=== PATIENT | female | born 1990 | race Caucasian/White ===

== ENCOUNTER → 2016-09-20 | Emergency (ER) | payer MEDICAID, OTHER ==
[~2016-09-20] MED LIST: TRICTAB PO
[2016-09-20 11:48] VITALS: BP 109/77; PULSE 70
--- NOTE | 2016-09-20 12:21 | PD ---
HPI Chief Complaint lower abdominal pain Date Seen: Sep 20, 2016 Time Seen: 12:02 (Aleksey Ferrer MD R1) Travel History International Travel<30 Days: No Contact w/Intl Traveler<30Days: No (Aleksey Ferrer MD R1) History of Present Illness HPI 26 y/o female at 24 weeks presents to ED with lower abdominal pain. States it started about 3 days ago. Radiating to pelvis and sometimes to back. Constant, getting worse. Describes as achy, shooting pain at times. No other pain. Denies any dysuria. Denies any vaginal discharge/bleeding, loss of fluids, contractions. Denies any headache, chest pain, SOB, leg pain/edema. She recently moved from [place] to [place]. Did see an OB doctor in [place] regularly, and states there were no issues during this . Had an ultrasound 4 weeks ago in [place], which was normal per patient. Para: 0 : 2 (Aleksey Ferrer MD R1) History Past Medical History Narrative Medical Hernias Ovarian cysts (Aleksey Ferrer MD R1) Obstetric History Obstetric History -miscarriage at 14 weeks (Aleksey Ferrer MD R1) Family History Narrative Family History HTN, DM (Aleksey Ferrer MD) Social History Alcohol Use: No Tobacco Use: Yes Substance Abuse: No (Aleksey Ferrer MD R1) Allergies-Medications Comments Latex, oxycodone (Aleksey Ferrer MD R1) Narrative Medication PNV (Aleksey Ferrer MD R1) Review of Systems General / Constitutional: Weight Gain, No: Fever Eyes: No: Blurred Vision, Visual changes HENT: No: Headaches Cardiovascular: No: Irregular Rhythm, Chest Pain or Discomfort, Palpitations Respiratory: No: Cough, Short of Breath Gastrointestinal: No: Nausea, Vomiting, Diarrhea, Constipation Genitourinary: Pelvic Pain, No: Frequency, Dysuria, Discharge, Vaginal Bleeding Musculoskeletal: No: Edema Skin: No Rash, No Itching Neurologic: No: Weakness, Dizziness Psychiatric: No: Anxiety, Depression (Aleksey Ferrer MD R1) Physical Exam Narrative GENERAL: Well-nourished, well-developed patient. SKIN: Warm and dry. HEAD: Normocephalic and atraumatic. EYES: No scleral icterus. No injection or drainage. ENT: No nasal drainage noted. Mucous membranes pink. Airway patent. NECK: Supple, trachea midline. No JVD. CARDIOVASCULAR: Regular rate and rhythm without murmurs, gallops, or rubs. RESPIRATORY: Breath sounds equal bilaterally. No accessory muscle use. ABDOMEN/GI: Abdomen soft, non-tender, bowel sounds present, no rebound, no guarding Gravid to 23 weeks size FHT's: Category: 1 Baseline: 130 Reactive: yes Variability: moderate Decels: none EXTREMITIES: No cyanosis or edema. BACK: Nontender without obvious deformity. No CVA tenderness. NEUROLOGICAL: Awake and alert. Motor and sensory grossly within normal limits. Five out of 5 muscle strength in all muscle groups. Normal speech. (Aleksey Ferrer MD R1) Data Data Vital Signs Reviewed: Yes Orders Vital Signs (Adult) .ON ADMISSION (09/20/16 12:13) ^ Labor Status (09/20/16 12:13) Urinalysis - C+S If Indicated (09/20/16 12:13) ^ Hydration (09/20/16 12:13) Gc And Chlamydia Pcr (09/20/16 12:13) (Aleksey Ferrer MD R1) Labs Laboratory Tests Test 09/20/16 11:15 Urine Color LIGHT-YELLOW Urine Turbidity CLEAR Urine pH 7.0 Urine Specific [place] 1.004 Urine Protein NEG mg/dL Urine Glucose (UA) NEG mg/dL Urine Ketones NEG mg/dL Urine Occult Blood NEG Urine Nitrite NEG Urine Bilirubin NEG Urine Urobilinogen LESS THAN 2.0 MG/DL Urine Leukocyte Esterase NEG Urine WBC LESS THAN 1 /hpf Urine Squamous Epithelial <1 /hpf Cells Microscopic Urinalysis Comment CULT NOT INDICATED Chlamydia trachomatis DNA NOT DETECTED (PCR) Neisseria gonorrhoeae DNA NOT DETECTED (PCR) (Kelsi Flaherty MD) MDM Medical Record Reviewed: Yes Interpretation(s) 26 y/o at 24 weeks presents with lower abdominal pain. Category 1 FHT. Vitals stable. - heart monitoring -Monitor vitals -UA -GC/CH -Hydration Narrative Course / MDM Urinalysis negative for infection. Category 1 FHT, vital signs stable. Clinical symptoms most likely consistent with round ligament pain. Discharge home in stable condition, return to ED if worsening symptoms, vaginal bleeding, loss of fluids, worsening signs of infection. Pt has no OB in [place], will give information to pt to follow up in [facility] with me , Dr. Ferrer, clinic if able or [facility] (Aleksey Ferrer MD R1) Attending Attestation 24 weeks with round ligament pain. UA negative Gc/ch negative. Normal exam, +FHT Reviewed belt and better shoes for work Patient given information for [facility] as well as [facility] to establish local OB care. (Kelsi Flaherty MD) Diagnosis Diagnosis: Primary Impression: Round ligament pain Disposition: 01 DISCHARGE HOME Condition: Stable Patient Instructions: General Instructions, Abdominal Pain in (ED) Aleksey Ferrer MD R1 Sep 20, 2016 12:21 Kelsi Flaherty MD Sep 21, 2016 03:21
[2016-09-20 12:59] VITALS: TEMP 98.2
[2016-09-20 13:00] VITALS: RESP 18
[2016-09-20 13:18] LABS: BLOOD, URINE NEG (NEG); GLUCOSE,URINE NEG (NEG); KETONE, URINE NEG (NEG); NITRITE,URINE NEG (NEG); SQUAMOUS EPITHELIAL CELL URINE <1 /hpf (0-5); URINE COLOR LIGHT-YELLOW (YELLW/STRAW)
[2016-09-20 13:19] LABS: COMMENT (UR) CULT NOT INDICATED; CULTURE IF INDICATED CULT NOT INDICATED
[2016-09-20 15:26] LABS: CHLAMYDIA PCR NOT DETECTED (NOT DETECT); NEISSERIA PCR NOT DETECTED (NOT DETECT)
== END | disposition home or self-care (01) ==
LOC: HOBED 11:24
DX: O26.92 Pregnancy related conditions, unspecified, second trimester (principal); R10.2 Pelvic and perineal pain; Z3A.24 24 weeks gestation of pregnancy
CPT/HCPCS: 81001; 87491; 87591; 99284

== ENCOUNTER 2016-09-26 19:25 | Emergency (ER) | payer OTHER ==
--- NOTE | 2016-09-26 20:23 | PD ---
HPI Chief Complaint Leaking fluid and cramping Date Seen: September 26, 2016 Travel History International Travel<30 Days: No Contact w/Intl Traveler<30Days: No Known Affected Area: No History of Present Illness HPI Patient is 26-year-old white female at 24 weeks gestation is unregistered at this time she just moved from [place] and is planning to see family practice tomorrow for initial visit, she complains of leaking fluid and cramping. Eyes bleeding. Baby is active heart rate tracing is reactive for 24 weeks and no contractions seen Para: 0 : 2 History Obstetric History Obstetric History 1 loss at 14 weeks Social History Alcohol Use: No Tobacco Use: No Substance Abuse: No Review of Systems General / Constitutional: No: Fever, Weight Gain, Chills, Other Eyes: No: Diploplia, Blurred Vision, Visual changes, Pain, Photophobia HENT: No: Headaches, Vertigo, Lightheadedness Cardiovascular: No: Irregular Rhythm, Chest Pain or Discomfort, Palpitations, Tachycardia, Syncope, Varicosities, Edema, Cyanosis Respiratory: No: Cough, Short of Breath, Other Gastrointestinal: No: Nausea, Vomiting, Diarrhea Genitourinary: No: Decreased Urinary Output, Oliguria Musculoskeletal: No: Limited ROM, Weakness, Cramping, Edema, Pain Skin: No Rash, No Itching, No Dryness, No Lumps, No Change in Pigmentation, No Change in Nails, No Alopecia, No Lesions Neurologic: No: Weakness, Dizziness, Syncope, Focal Abnormalities, Coordination Problem, Headache, Slurred Speech, Seizures Psychiatric: No: Depression, Suicidal Ideations, Homicidal Ideation Endocrine: No: Heat Intolerance, Cold Intolerance, Polydipsia, Polyuria, Other Physical Exam Narrative GENERAL: Well-nourished, well-developed patient. SKIN: Warm and dry. HEAD: Normocephalic and atraumatic. EYES: No scleral icterus. No injection or drainage. ENT: No nasal drainage noted. Mucous membranes pink. Airway patent. NECK: Supple, trachea midline. No JVD. CARDIOVASCULAR: Regular rate and rhythm without murmurs, gallops, or rubs. RESPIRATORY: Breath sounds equal bilaterally. No accessory muscle use. BREASTS: Bilateral exam showed no masses , no retractions, no nipple discharge. ABDOMEN/GI: Abdomen soft, non-tender, bowel sounds present, no rebound, no guarding Gravid to [24-] weeks size Fundal Height: [24-] GENITOURINARY: External Genitalia: intact and normal in appearance BUS glands: [-] Cervix: [-] Dilatation: [Closed-] Effacement: [-] Thick Station: [-3] Membranes: [intact ] amnio sure negative Uterine Contractions: [-none] FHT's: Category: [1-] Baseline: [-133] Reactive: [-yes] Variability: [-mod] Decels: [-none] EXTREMITIES: No cyanosis or edema. BACK: Nontender without obvious deformity. No CVA tenderness. NEUROLOGICAL: Awake and alert. Motor and sensory grossly within normal limits. Five out of 5 muscle strength in all muscle groups. Normal speech. Data Data Labs Amnio sure negative MDM Interpretation(s) Patient is 26-year-old white female at 24 weeks and registers as of now presents planning of cramping and leaking. No bleeding. heart tones are within normal limits no contractions seen. Amnio sure was negative. Patient's cervix is closed thick and high Plan Plan discharge home to bedrest , take Tylenol by mouth liberally for pain, heating pad on low, drink plenty of fluid hydrate and bedrest as much as she can if uncomfortable. She has appointment tomorrow with family practice Diagnosis Diagnosis: Primary Impression: Abdominal pain during in second trimester Additional Impression: No leakage of amniotic fluid into vagina Disposition: 01 DISCHARGE HOME Condition: Stable Daryn Young II, MD September 26, 2016 20:23
[2016-11-02] MEDS ORDERED: TRICTAB PO (21:25)
[2016-11-03] MEDS ORDERED: TRICTAB PO (08:36)
== END 2016-09-26 21:24 | disposition home or self-care (01) ==
LOC: HOBED 19:25
DX: O26.92 Pregnancy related conditions, unspecified, second trimester (principal); R10.9 Unspecified abdominal pain; Z3A.24 24 weeks gestation of pregnancy
CPT/HCPCS: 84112; 99284

== ENCOUNTER 2016-11-08 18:54 | Emergency (ER) | payer OTHER ==
[2016-11-08 19:08] VITALS: BP 115/74; PULSE 78
[2016-11-08 19:09] VITALS: RESP 16; TEMP 98.4
--- NOTE | 2016-11-08 19:33 | PD ---
HPI Chief Complaint contractions and pelvic pain Date Seen: Nov 08, 2016 Time Seen: 19:21 (Marielena Gomez MD R1) Travel History International Travel<30 Days: No Contact w/Intl Traveler<30Days: No Known Affected Area: No (Marielena Gomez MD R1) History of Present Illness HPI Patient is a 26 year old at 31 and 4/7 weeks gestation by first trimester ultrasound, SUHAIL 01/11/17, who presents to the OB ED with contractions and pelvic pain. The symptoms started last night and she is now having contractions every 5 -10 minutes. She denies leakage of fluid and vaginal bleeding. She feels baby moving regularly. She denies ROBB/N/V/D/fever/sick contacts/SOB/calf pain/ dizziness/seeing spots. OB care is with Dr. Coburn/Rafia in the [facility]. Para: 0 : 2 (Marielena Gomez MD R1) History Past Medical History Medical History: Denies Significant Hx (Marielena Gomez MD R1) Obstetric History Obstetric History G1: 14 week SAB G2: Current (Marielena Gomez MD R1) Past Surgical History Narrative Surgical Laparoscopy 5, most recently in 2010 D&C for SAB, 2011 Appendectomy, years ago (Marielena Gomez MD R1) Family History Narrative Family History Mother with hypertension (Marielena Gomez MD R1) Social History Alcohol Use: No Tobacco Use: Yes (one cigarette daily) Substance Abuse: No (Marielena Gomez MD R1) Allergies-Medications (Allergen,Severity, Reaction): Coded Allergies: Latex (Verified Allergy, Intermediate, 11/08/16) Oxycodone (Verified Allergy, Intermediate, Nausea/Vomiting, 11/08/16) Home Meds Active Scripts Vit-Ferrous Fumarate ()1 Tab Tab1 Tab PO DAILY #30 TAB Ref 11 Prov:Farhan Coburn MD R2 11/03/16 Discontinued Scripts Vit-Ferrous Fumarate ()1 Tab Tab1 Tab PO DAILY #30 TAB Ref 11 Prov:Kameron Cheung MD R2 11/02/16 Review of Systems Except as stated in HPI: all other systems reviewed are Neg (Marielena Gomez MD R1) Physical Exam Vital Signs Date Time Temp Pulse Resp B/P Pulse Ox O2 Delivery O2 Flow Rate FiO2 11/08/16 19:09 98.4 11/08/16 19:09 16 11/08/16 19:08 78 115/74 Narrative GENERAL: Well-nourished, well-developed female in no apparent distress. SKIN: Warm and dry. No rashes. HEAD: Normocephalic and atraumatic. EYES: No scleral icterus. No injection or drainage. ENT: No nasal drainage noted. Mucous membranes pink. Airway patent. NECK: Supple, trachea midline. No JVD. CARDIOVASCULAR: Regular rate and rhythm without murmurs, gallops, or rubs. RESPIRATORY: Breath sounds equal bilaterally. No accessory muscle use. ABDOMEN/GI: Abdomen soft, non-tender, bowel sounds present, no rebound, no guarding GENITOURINARY: External Genitalia: intact and normal in appearance Cervix: 0 Dilatation: 0 Effacement: 0 Station: -3 Presentation: [-] Membranes: intacf Uterine Contractions: Absent FHT's: Category: 1 Baseline: 130 Reactive: Yes to 145 Variability: Moderate Decels: Absent EXTREMITIES: No cyanosis or edema. BACK: Nontender without obvious deformity. No CVA tenderness. NEUROLOGICAL: Awake and alert. Motor and sensory grossly within normal limits. Five out of 5 muscle strength in all muscle groups. Normal speech. (Marielena Gomez MD R1) Data Data Vital Signs Reviewed: Yes (BP 115/74, P 78, RR 16, 98.4F) Orders Vital Signs (Adult) .ON ADMISSION (11/08/16 19:07) ^ Labor Status (11/08/16 19:07) ^ Hydration (11/08/16 19:07) (Marielena Gomez MD R1) MDM Medical Record Reviewed: Yes Narrative Course / MDM 26-year-old at 31 weeks and 4 days who is a [facility] patient who presents to the ED with contractions and pelvic pressure Intrauterine : Category 1 tracing Cervix closed No contractions noted on monitor Urine dipstick collected in clinic today, reviewed and showing no abnormalities Offer by mouth hydration Monitor heart tones Routine care Not in labor Contractions and lower abdominal/pelvic pain Likely Bakari Vela and round ligament pain Will discharge home, legal counsel on signs of early labor and abdominal pain in , follow-up with care provider in [facility] Will discuss with Dr. Dennis (Marielena Gomez MD R1) Diagnosis Diagnosis: Primary Impression: Abdominal pain during in third trimester Additional Impression: Bakari Vela' contraction Disposition: 01 DISCHARGE HOME Condition: Stable Patient Instructions: Abdominal Pain in (ED), Early Labor Signs (ED) Collaborating MD Comments Patient seen and examined. Agree with finding and management plans (Marily Dennis MD) Marielena Gomez MD R1 Nov 08, 2016 19:33 Marily Dennis MD Nov 09, 2016 07:50
== END 2016-11-08 20:30 | disposition home or self-care (01) ==
LOC: HOBED 18:54
DX: O47.9 False labor, unspecified (principal); Z3A.31 31 weeks gestation of pregnancy; Z72.0 Tobacco use
CPT/HCPCS: 99281

== ENCOUNTER → 2016-11-16 | Outpatient (CLI) | payer OTHER | LOC: HPND 13:02 | PROVIDERS: ATTEND Family Medicine | DX: O09.33 Supervision of pregnancy with insufficient antenatal care, third trimester (principal); O36.5930 Maternal care for other known or suspected poor fetal growth, third trimester, not applicable or unspecified; Z3A.32 32 weeks gestation of pregnancy | CPT/HCPCS: 76816; 76818; 76820; 76821 ==

== ENCOUNTER 2016-12-08 12:39 | Emergency (ER) | payer OTHER ==
[~2016-12-08 12:39] MED LIST changes: +IRON18TA
[2016-12-08 13:51] VITALS: BP 127/80; PULSE 73
[2016-12-08] MEDS ORDERED: LACTATED RINGER'S 1000 ML INJ 1,000 ML IV ONE (14:15)
--- NOTE | 2016-12-08 14:27 | PD ---
HPI Chief Complaint Pelvic pain/pressure Date Seen: Dec 08, 2016 Time Seen: 14:00 (Keyon Whittington MD R1) Travel History International Travel<30 Days: No Contact w/Intl Traveler<30Days: No (Keyon Whittington MD R1) History of Present Illness HPI 26 yo with h/o IUGR presenting with pelvic pain/pressure. Started this morning, radiates to back. Denies VB, LOF, vaginal discharge, fevers/chills. Endorses movement. Denies CP/SOB, dysuria. (Keyon Whittington MD R1) History Past Medical History Narrative Medical Ovarian cysts (Keyon Whittington MD R1) Narrative Medical Abnormal Pap Tattoo Migraines (Kelsi Flaherty MD) Obstetric History Obstetric History First lost at 14 weeks (Keyon Whittington MD R1) Past Surgical History Narrative Surgical appendectomy laparoscopy for ovarian cysts (Keyon Whittington MD R1) Narrative Surgical D&C Hernia repair [place] Teeth Extraction (Kelsi Flaherty MD) Family History Narrative Family History Maternal h/o DVT (Keyon Whittington MD R1) Social History Alcohol Use: No Tobacco Use: No Substance Abuse: Yes (marijuana, last use first trimester) (Keyon Whittington MD R1) Substance Abuse: Yes (Hx of TCH) (Kelsi Flaherty MD) Allergies-Medications (Allergen,Severity, Reaction): Coded Allergies: Latex (Verified Allergy, Intermediate, 12/05/16) Oxycodone (Verified Allergy, Intermediate, Nausea/Vomiting, 12/05/16) Home Meds Active Scripts Vit-Ferrous Fumarate ()1 Tab Tab1 Tab PO DAILY #30 TAB Ref 11 Prov:Farhan Coburn MD R2 11/03/16 Reported Medications Ferrous Sulfate (Iron)90 Mg Tab 12/05/16 Review of Systems Except as stated in HPI: all other systems reviewed are Neg (Keyon Whittington MD R1) General / Constitutional: No: Fever, Chills Eyes: No: Blurred Vision, Visual changes HENT: No: Headaches, Lightheadedness Cardiovascular: No: Chest Pain or Discomfort, Palpitations Respiratory: No: Cough, Short of Breath Gastrointestinal: Abdominal Pain (cramping), No: Nausea, Vomiting, Diarrhea Genitourinary: No: Urgency, Frequency, Dysuria, Discharge, Vaginal Bleeding Musculoskeletal: No: Limited ROM, Weakness Skin: No Rash, No Itching Neurologic: No: Weakness, Dizziness (Kelsi Flaherty MD) Physical Exam Narrative GENERAL: Well-nourished, well-developed patient. SKIN: Warm and dry. HEAD: Normocephalic and atraumatic. EYES: No scleral icterus. No injection or drainage. ENT: No nasal drainage noted. Mucous membranes pink. Airway patent. NECK: Supple, trachea midline. No JVD. CARDIOVASCULAR: Regular rate and rhythm without murmurs, gallops, or rubs. RESPIRATORY: Breath sounds equal bilaterally. No accessory muscle use. BREASTS: Bilateral exam showed no masses , no retractions, no nipple discharge. ABDOMEN/GI: Abdomen soft, non-tender, bowel sounds present, no rebound, no guarding GENITOURINARY: Speculum exam reveals closed cervix without erythema or bleeding ; vagina with thin whitish discharge Cervix: midposition Dilatation: closed Effacement: thick Station: high Presentation: vertex Membranes: intact Uterine Contractions: regular every 2-4 mins FHT's: Category: 1 Baseline: 120 Reactive: Y Variability: moderate Decels: N EXTREMITIES: No cyanosis or edema. BACK: Nontender without obvious deformity. No CVA tenderness. NEUROLOGICAL: Awake and alert. Motor and sensory grossly within normal limits. Normal speech. (Keyon Whittington MD R1) Data Data Vital Signs Reviewed: Yes Orders Vital Signs (Adult) .ON ADMISSION (12/08/16 14:14) ^ Labor Status (12/08/16 14:14) Urinalysis - C+S If Indicated (12/08/16 14:14) ^ Non Stress Test (12/08/16 14:14) ^ Hydration (12/08/16 14:14) Gc And Chlamydia Pcr (12/08/16 14:14) Lactated Ringer's 1000 Ml Inj (Lr 1000 M (12/08/16 14:15) (Keyon Whittington MD R1) Labs Laboratory Tests Test 12/08/16 14:20 Urine Color LIGHT-YELLOW (YELLW/STRAW) Urine Turbidity CLEAR (CLEAR) Urine pH 6.5 (5.0-8.5) Urine Specific [place] 1.004 (1.002-1.035) Urine Protein NEG mg/dL (NEG-TRACE) Urine Glucose (UA) NEG mg/dL (NEG) Urine Ketones 10 mg/dL (NEG) Urine Occult Blood NEG (NEG) Urine Nitrite NEG (NEG) Urine Bilirubin NEG (NEG) Urine Urobilinogen LESS THAN 2.0 MG/DL (LESS THAN 2.0) Urine Leukocyte Esterase NEG (NEG) Urine WBC LESS THAN 1 /hpf (0-5) Microscopic Urinalysis Comment CULT NOT INDICATED (Kelsi Flaherty MD) MDM Medical Record Reviewed: Yes Narrative Course / MDM 26 yo at 35/2 weeks presenting with pelvic pain/pressure #1 IUP Cat 1 tracing, reassuring - monitoring #2 GBS positive #3 contractions UA negative GC/Chlamydia negative - LR bolus 1 L - Oral hydration - If ctx fail to resolve with hydration, treat with terbutaline SQ Update: Ctx resolved after single dose SQ terbutaline. tracing remained category 1. Will f/u in clinic on Sunday. dw Dr. Flaherty, Dr. Macias (Keyon Whittington MD R1) Attending Attestation 26 yo @ 35 weeks. Uncomplicated . Presented today with c/o lower abdominal cramping. No VB, LOF. +FM. UC noted every 2-3 min, palpated mild. SSE and SVE with no cervical dilation. UA, CH/GC negative. IV hydrated and given Terb x 1 with resolution of symptoms and UC. CAT I FHT. D/c home. Precautions reviewed. Limited activity until LESLIE on sunday. Patient seen and examined with Dr. Whittington (Kelsi Flaherty MD) Diagnosis Diagnosis: Primary Impression: contractions Disposition: 01 DISCHARGE HOME Condition: Good Patient Instructions: Early Labor Signs (ED) Departure Forms: Tests/Procedures, Work Release Enter return to work date: Dec 11, 2016 Keyon Whittington MD R1 Dec 08, 2016 14:27 Kelsi Flaherty MD Dec 08, 2016 15:55
[2016-12-08] MEDS ORDERED: TERBUTALINE INJ 1 MG/ML AMP SQ ONE (14:30)
[2016-12-08 15:26] LABS: BLOOD, URINE NEG (NEG); GLUCOSE,URINE NEG (NEG); KETONE, URINE 10 mg/dL (NEG); NITRITE,URINE NEG (NEG); PH, URINE 6.5 (5.0-8.5); URINE COLOR LIGHT-YELLOW (YELLW/STRAW)
[2016-12-08 15:38] LABS: COMMENT (UR) CULT NOT INDICATED; CULTURE IF INDICATED CULT NOT INDICATED
[2016-12-08 18:00] LABS: CHLAMYDIA PCR NOT DETECTED (NOT DETECT); NEISSERIA PCR NOT DETECTED (NOT DETECT)
== END 2016-12-08 16:01 | disposition home or self-care (01) ==
LOC: HOBED 12:39
DX: O62.9 Abnormality of forces of labor, unspecified (principal); Z3A.35 35 weeks gestation of pregnancy
CPT/HCPCS: 59025; 81001; 87491; 87591; 96372; 99284; J3105; J7120

== ENCOUNTER 2016-12-30 03:47 | Inpatient (IN) | payer OTHER ==
[~2016-12-30] VITALS: Ht 157.5 cm; Wt 64.4 kg
[2016-12-30] MEDS ORDERED: TYLE325T PO (05:03)
--- NOTE | 2016-12-30 05:42 | HHI.HP ---
History & Physical H&P HPI Chief Complaint LOF Travel History International Travel<30 Days: No Contact w/Intl Traveler<30Days: No Known Affected Area: No History of Present Illness HPI 26y/o , IUP at 38.3 PNC complicated by h/o chlamydia in the past Patient presents c/o LOF that started at 0310am. She reports the fluid continues to leak and is clear; there were no aggravating or alleviating factors. She reports she is having some painful cramping and ctx as well that is occuring every several minutes and has increased in intensity since her water broke. She denies any VB and reports good FM. [employer]: Menarche at 8-9 Menses q month menses last 5d H/o chlamydia in the past Denies any abnl PAP PMH: denies FH: HTN, DM Meds: PNV, Fe All: latex, oxycodone (makes her very ill) SH: denies drugs/EtOH, h/o tobacco but d/c PSH: L/S appy, L/S hernia repair x3, L/S ovarian cystectomy Para: 0 : 1 History (Limited) History Allergies-Medications Allergies-Medications (Allergen,Severity, Reaction): Coded Allergies: Latex (Verified Allergy, Intermediate, 12/19/16) Oxycodone (Verified Allergy, Intermediate, Nausea/Vomiting, 12/19/16) Home Meds Active Scripts Vit-Ferrous Fumarate ()1 Tab Tab1 Tab PO DAILY #30 TAB Ref 11 Prov:Farhan Coburn MD R3 11/03/16 Reported Medications Acetaminophen (Tylenol)325 Mg [id number] Mg PO Q4H PRN (HEADACHE) Ref 0 12/30/16 Ferrous Sulfate (Iron)90 Mg Tab 12/05/16 ROS Review of Systems Except as stated in HPI: all other systems reviewed are Neg Physical Exam Physical Exam Narrative VSS AF GENERAL: Well-nourished, well-developed patient. SKIN: Warm and dry. HEAD: Normocephalic and atraumatic. EYES: No scleral icterus. No injection or drainage. ENT: No nasal drainage noted. Mucous membranes pink. Airway patent. NECK: Supple, trachea midline. No JVD. CARDIOVASCULAR: Regular rate and rhythm without murmurs, gallops, or rubs. RESPIRATORY: Breath sounds equal bilaterally. No accessory muscle use. BREASTS: deferred Gravid GENITOURINARY: External Genitalia: intact and normal in appearance BUS glands: normal Cervix: no cervical/vaginal masses, normal rugae, grossly ROM Dilatation: 2-3 Effacement: 80 Station: -2 Presentation: cephalic Membranes: [intact or ruptured] Uterine Contractions: [-] FHT's: Category: 1 Baseline: 120s Reactive: yes Variability: moderate LTV, good accels Decels: none EXTREMITIES: No cyanosis or edema. BACK: Nontender without obvious deformity. No CVA tenderness. NEUROLOGICAL: Awake and alert. Motor and sensory grossly within normal limits. Five out of 5 muscle strength in all muscle groups. Normal speech. PSYCHL grossly normal memory/affect MS: grossly normal ROM, gait, muscle strength Data Data Data Orders Ob (2e) Additional Admit Info (12/30/16 05:20) MDM MDM Plan A/P: 26y/o 1. IUP at 38.3 2. PROM: discussed with patient the indicated for augmentation/induction. patient would like opportunity to enter labor spontaneously. Discussed reassessment in 4-6h, consider oxytocin at that time if remains in early labor. Discussed risks of , risks /indications of C/S. All patient and partner's questions were answered. 3. GBS neg 4. h/o chlamydia in past 5. h/o tobacco 6. wellbeing: reassuring testing, continue Uzma Treadwell MD Dec 30, 2016 05:42
[2016-12-30] MEDS ORDERED: LACTATED RINGER'S 1000 ML INJ 1,000 ML IV PRN (05:54)
[2016-12-30] MEDS ORDERED: SODIUM CHLORID 0.9% 500 ML INJ 500 ML IV PRN (06:00)
[2016-12-30] MEDS ORDERED: CITRIC ACID-SODIUM CITRATE LIQ 30 ML UDC PO SCH (06:00)
[2016-12-30] MEDS ORDERED: LIDOCAINE HCL 1% 50 ML VIAL I-DERMAL PRN (06:00)
[2016-12-30] MEDS ORDERED: LIDOCAINE HCL 1% 50 ML VIAL INFIL PRN (06:00)
[2016-12-30] MEDS ORDERED: OXYTOCIN 30 UNITS-500ML PREMIX 500 ML IV ONE (06:00)
[2016-12-30] MEDS ORDERED: MINERAL OIL 10 ML VIAL TOPICAL PRN (06:00)
--- NOTE | 2016-12-30 06:03 | PD.LABORPN ---
Subjective Subjective OBHGIn LORIN, patient with reassuring FHR and reactive NST. Immediately after transfer to labor room, 3 spontaneous decels were noted that resolved with positional change and supplemental O2 with FHR return to baseline with moderate LTV and good accels noted. WIll monitor closely. Uzma Adams MD Dec 30, 2016 06:03
[2016-12-30] MEDS ORDERED: SODIUM CHLOR 0.9% 1000 ML INJ 1,000 ML IV PRN (06:14)
[2016-12-30 06:17] LABS: AUTOMATED NEUTROPHIL # 5.9 TH/MM3 (1.8-7.7); BASOPHIL % 0.5 % (0.0-2.0); EOSINOPHIL # 0.1 TH/MM3 (0-0.4); EOSINOPHIL % 0.8 % (0.0-4.0); HEMATOCRIT 35.6 % (35.0-46.0); HEMO FLAGS DIFF FINAL; LYMPH % 24.9 % (9.0-44.0); LYMPHOCYTE # 2.3 TH/MM3 (1.0-4.8); MEAN CELL VOLUME 88.2 FL (80.0-100.0); MEAN CORPUSCULAR HGB CONC 32.9 % (32.0-36.0); MONO % 8.1 % (0.0-8.0); NEUT % 65.7 % (16.0-70.0); PLATELET COUNT 184 TH/MM3 (150-450); RED BLOOD COUNT 4.04 MIL/MM3 (4.00-5.30); RED CELL DISTRIBUTION WIDTH 13.4 % (11.6-17.2)
[2016-12-30 06:52] LABS: BACTERIA, URINE OCC /hpf; BLOOD, URINE LARGE (NEG); GLUCOSE,URINE NEG (NEG); KETONE, URINE NEG (NEG); MUCUS URINE FEW /lpf (OCC); NITRITE,URINE NEG (NEG); RENAL EPITHELIAL CELLS <1 /hpf; SQUAMOUS EPITHELIAL CELL URINE 20 /hpf (0-5); URINE COLOR YELLOW (YELLW/STRAW)
[2016-12-30 06:53] LABS: COMMENT (UR) CULTURE INDICATED; CULTURE IF INDICATED CULTURE INDICATED
[2016-12-30] MEDS ORDERED: fentaNYL 2MCG-BUPIV 0.125% INJ 100 ML ONE (06:54)
[2016-12-30] MEDS ORDERED: ePHEDrine/NS 25 MG/5 ML SYR ONE (07:12)
[2016-12-30 07:17] LABS: AMPHETAMINE, URINE NEG (NEG); BARBITURATES, URINE NEG (NEG); COCAINE, URINE NEG (NEG)
[2016-12-30] MEDS ORDERED: fentaNYL 2MCG-BUPIV 0.125% 100 ML EPIDURAL SCH (08:15)
[2016-12-30] MEDS ORDERED: NO SYSTEM NARCOTICS PRN (08:15)
[2016-12-30] MEDS ORDERED: ePHEDrine/NS 25 MG/5 ML SYR IV PRN (08:15)
[2016-12-30] MEDS ORDERED: DO NOT ADMINISTER ANTICOAGULANTS PRN (08:15)
[2016-12-30] MEDS ORDERED: OXYTOCIN 30 UNITS-500ML PREMIX 500 ML IV SCH ×3 (09:00→18:00)
--- NOTE | 2016-12-30 09:47 | PD.LABORPN ---
Subjective Subjective OBHG: S: patient resting O: VSS AF FHT: 130s, moderate LTV, good accels, and no consistent decels at this time [place]:SVE: 4/80/-2 A/P: 1. IUP at 38/3 2. wellbeing: FHR reassuring at this time, will monitor closely and restart pitocin at this time 3. GBS neg Objective Objective Pelvic Exam: Cervix: [-] Dilatation: [-] Effacement: [-] Station: [-] Presentation: [-] Membranes: [intact or ruptured] Uterine Contractions: [-] FHT's: Category: [-] Baseline: [-] Reactive: [-] Variability: [-] Decels: [-] Jack Wells MD R2 Dec 30, 2016 09:47
--- NOTE | 2016-12-30 11:14 | PD.LABORPN ---
Subjective Subjective PROM at 38 weeks primiparous patient Cervix is 4-5 80-90% effaced -2-Vertex heart rate tracing reactive contractions are regular IUPC scalp electrode inserted Pitocin starting now Anticipate labor progress and vaginal delivery Objective Objective Pelvic Exam: Cervix: [-] Dilatation: [-] Effacement: [-] Station: [-] Presentation: [-] Membranes: [intact or ruptured] Uterine Contractions: [-] FHT's: Category: [-] Baseline: [-] Reactive: [-] Variability: [-] Decels: [-] Daryn Young II, MD Dec 30, 2016 11:14
[2016-12-30] MEDS ORDERED: DIPHTH/TETANUS/ACEL PERTUSSIS (BOOSTER) 0.5 ML VIAL/PFS IM ONE (16:00)
[2016-12-30] MEDS ORDERED: MEASLES, MUMPS, RUBELLA VACCINE 0.5 ML VIAL SQ ONE (16:00)
[2016-12-30] MEDS ORDERED: ZOLPIDEM TARTRATE 5 MG TAB PO PRN (18:00)
[2016-12-30] MEDS ORDERED: ONDANSETRON ODT 4 MG TAB PO PRN (18:00)
[2016-12-30] MEDS ORDERED: SODIUM CHLORIDE 0.9% FLUSH 10 ML FLUSH IV FLUSH PRN (18:00)
[2016-12-30] MEDS ORDERED: DOCUSATE SODIUM 50 MG/SENNA 8.6 MG TAB PO PRN (18:00)
[2016-12-30] MEDS ORDERED: BENZOCAINE 20% TOPICAL SPRAY 60 ML CAN TOPICAL PRN (18:00)
[2016-12-30] MEDS ORDERED: WITCH HAZEL 50%/GLYCERIN 12.5% 40 PAD JAR TOPICAL PRN (18:00)
[2016-12-30] MEDS ORDERED: traMADol HCL 50 MG TAB PO PRN (18:00)
[2016-12-30] MEDS ORDERED: ALUMINUM/MAGNESIUM/SIMETH 30 ML CUP PO PRN (18:00)
--- NOTE | 2016-12-30 18:56 | PD.OB.DELI ---
Delivery Date: Dec 30, 2014 Anesthesia: Epidural Episiotomy: None Vaginal Delivery: Normal Presentation: Occiput anterior Nuchal Cord: x2 Delayed cord clamping (45 sec): Yes : Male One Minute : 8 Five Minute : 9 Weight: 2425 Placenta: Spontaneous delivery Laceration: Vaginal laceration (x2 superficial, periurethral lacerations) Repair: Chromic running Additional Information Time of delivery: 1612 Mrs. Mast is a G2 now P1 after giving vaginally at 38/3. was without complications. Baby was born with 2 body cords. Apgars at time of were 8/9. Placenta was then delivered spontaneously. She was found to have 2 periurethral superficial lacerations which were repaired with running chromic sutures. Hemostasis was obtained. Mother and baby currently resting in the room together without complaints. SDW: Dr. Connor Chandra Ryan H MD R2 Dec 30, 2016 18:56
[2016-12-30] MEDS: IBUPROFEN 600 MG TAB PO PRN (19:05)
[2016-12-30] MEDS: SODIUM CHLORIDE 0.9% FLUSH 10 ML FLUSH IV FLUSH SCH (21:00)
[2016-12-31] MEDS: ACETAMINOPHEN 325 MG TAB PO PRN ×3 (06:02→22:02)
[2016-12-31] MEDS: IBUPROFEN 600 MG TAB PO PRN ×3 (06:02→22:02)
[2016-12-31] MEDS: LACTATED RINGER'S 1000 ML INJ 1,000 ML IV SCH ×2 (07:32→13:54)
--- NOTE | 2016-12-31 08:21 | HHI.OB ---
Subjective Post Day: 1 Remarks Pt seen and examined this morning. day # 1 AFVSS overnight. Decreased lochia. Denies dysuria. No breast tenderness. She is feeding the baby via breast. Appetite good. No nausea or vomiting. Patient has not yet had a bowel movement, but does endorse passing gas. Ambulating well. Denies calf pain or shortness of breath. Otherwise, she is doing well this morning and has no other concerns. Objective Objective Remarks GENERAL: Well-nourished, well-developed patient. CARDIOVASCULAR: Regular rate and rhythm without murmurs, gallops, or rubs. RESPIRATORY: Breath sounds equal bilaterally. No accessory muscle use. ABDOMEN/GI: Abdomen soft, non-tender. Fundus: Firm, non-tender at umbilicus. GENITOURINARY: Light to moderate bleeding. EXTREMITIES: No cyanosis or edema, non-tender, without signs of DVT. Medications and IVs Current Medications Medications (Trade) Dose Ordered Sig/Bea Route Start Time Stop Time Status Last Admin Lactated Ringer's 1,000 ml @ 125 mls/hr Q8H IV 12/30/16 05:54 Lactated Ringer's 1,000 ml @ 3,000 mls/hr Q20M PRN IV 12/30/16 05:54 Sodium Chloride 500 ml @ 1,000 mls/hr ONCE PRN IV 12/30/16 06:00 01/02/17 05:59 (NS 1000 ml Inj) 1,000 ml @ 100 mls/hr Q10H PRN IV 12/30/16 06:14 Mineral Oil 10 ml 10 ml UNSCH PRN TOPICAL 12/30/16 06:00 Oxytocin 500 ml @ 0 mls/hr TITRATE IV 12/30/16 09:00 Fentanyl/ Bupivacaine HCl 100 ml @ 0 mls/hr TITRATE EPIDURAL 12/30/16 08:15 (Pitocin 30 Units-NS 500 ml Premix) 500 ml @ 0 mls/hr TITRATE IV 12/30/16 10:15 12/30/16 11:44 (NS Flush) 2 ml BID IV FLUSH 12/30/16 21:00 (NS Flush) 2 ml UNSCH PRN IV FLUSH 12/30/16 18:00 (Tylenol) 650 mg Q4H PRN PO 12/30/16 18:00 12/31/16 06:02 (Motrin) 600 mg Q6H PRN PO 12/30/16 18:00 12/31/16 06:02 (Americaine 20% Top Spr) 1 spray Q4H PRN TOPICAL 12/30/16 18:00 12/30/16 19:06 (Tucks Pads) 1 applic QID PRN TOPICAL 12/30/16 18:00 12/30/16 19:06 (Margot-Colace) 2 tab Q12H PRN PO 12/30/16 18:00 12/31/16 06:02 (Ambien) 5 mg HS PRN PO 12/30/16 18:00 (Mag-Al Plus Susp Liq) 15 ml Q8H PRN PO 12/30/16 18:00 (Zofran Odt) 4 mg Q6H PRN PO 12/30/16 18:00 (Ultram) 50 mg Q6H PRN PO 12/30/16 18:00 Assessment/Plan Assessment and Plan 26 y/o female who is day # 1 s/p spontaneous vaginal delivery. -Continue routine care. -Percocet and Motrin PRN pain. -Encouraged OOB. Advised pelvic rest for 6 wks. -Re: ctrl, she would like to discuss her options at her follow-up appointment. -Anticipate discharge tomorrow pending clinical course. shashank Young MD Discharge Planning Likely tomorrow Jack Wells MD R2 Dec 31, 2016 08:21
[2016-12-31] MEDS: SODIUM CHLORIDE 0.9% FLUSH 10 ML FLUSH IV FLUSH SCH (09:00)
[2017-01-01] MEDS: IBUPROFEN 600 MG TAB PO PRN (04:42)
[2017-01-01] MEDS: ACETAMINOPHEN 325 MG TAB PO PRN (04:42)
[2017-01-01 08:00] VITALS: BP 98/75; PULSE 76; RESP 16; TEMP 98.1; O2SAT 98
[2017-01-01] MEDS ORDERED: IBUP-232 PO (09:37)
--- NOTE | 2017-01-01 09:38 | HHI.DCPOC ---
Discharge Care Plan Diagnosis: (1) Vaginal delivery Your Health Problems Are: Vaginal delivery Report Symptoms to Your Doctor -Temperature above 100.5 degrees -Redness, of incision or excessive or foul smelling drainage -Unusual pain or calf pain -Increased vaginal bleeding -Painful or difficulty urinating -Feelings of extreme sadness or anxiety after 2 weeks Directions to Meet Your Goals Take your medications as prescribed Follow your dietary instruction Follow activity as directed Ensure plenty of rest for recovery Drink fluids for hydration Keep your appointments as scheduled Take your immunizations and boosters as scheduled If your symptoms worsen call your PCP, if no PCP go to Urgent Care Center or Emergency Room Smoking is Dangerous to Your Health. Avoid second hand smoke Call the 24-hour crisis hotline for domestic abuse at Alonrda Ash MD R1 Jan 01, 2017 09:38
--- NOTE | 2017-01-01 10:17 | HHI.OB ---
Subjective Post Day: 2 Remarks Patient is a 26-year-old delivered at 38 weeks and 3 days. Patient is day 2 after spontaneous vaginal delivery. Patient's pain is well- controlled. Patient reports minimal bleeding. Patient reports eating and drinking without any nausea or vomiting. Patient has passed gas and has had a bowel movement. Patient denies chest pain and shortness of breath. Patient has been ambulating; she denies lower extremity pain. Patient has decided to breast- feed. Objective Vitals/I&O Vital Signs Date Time Temp Pulse Resp B/P Pulse Ox O2 Delivery O2 Flow Rate FiO2 01/01/17 08:00 98.1 76 16 98/75 98 Objective Remarks GENERAL: Well-nourished, well-developed patient. CARDIOVASCULAR: Regular rate and rhythm without murmurs, gallops, or rubs. RESPIRATORY: Breath sounds equal bilaterally. No accessory muscle use. ABDOMEN/GI: Abdomen soft, non-tender. Fundus: Firm, non-tender at umbilicus. GENITOURINARY: Light to moderate bleeding. EXTREMITIES: No cyanosis or edema, non-tender, without signs of DVT. Medications and IVs Current Medications Medications (Trade) Dose Ordered Sig/Bea Route Start Time Stop Time Status Last Admin Lactated Ringer's 1,000 ml @ 125 mls/hr Q8H IV 12/30/16 05:54 Lactated Ringer's 1,000 ml @ 3,000 mls/hr Q20M PRN IV 12/30/16 05:54 Sodium Chloride 500 ml @ 1,000 mls/hr ONCE PRN IV 12/30/16 06:00 01/02/17 05:59 (NS 1000 ml Inj) 1,000 ml @ 100 mls/hr Q10H PRN IV 12/30/16 06:14 Mineral Oil 10 ml 10 ml UNSCH PRN TOPICAL 12/30/16 06:00 Oxytocin 500 ml @ 0 mls/hr TITRATE IV 12/30/16 09:00 Fentanyl/ Bupivacaine HCl 100 ml @ 0 mls/hr TITRATE EPIDURAL 12/30/16 08:15 (Pitocin 30 Units-NS 500 ml Premix) 500 ml @ 0 mls/hr TITRATE IV 12/30/16 10:15 12/30/16 11:44 (NS Flush) 2 ml BID IV FLUSH 12/30/16 21:00 (NS Flush) 2 ml UNSCH PRN IV FLUSH 12/30/16 18:00 (Tylenol) 650 mg Q4H PRN PO 12/30/16 18:00 01/01/17 04:42 (Motrin) 600 mg Q6H PRN PO 12/30/16 18:00 01/01/17 04:42 (Americaine 20% Top Spr) 1 spray Q4H PRN TOPICAL 12/30/16 18:00 12/30/16 19:06 (Tucks Pads) 1 applic QID PRN TOPICAL 12/30/16 18:00 12/30/16 19:06 (Margot-Colace) 2 tab Q12H PRN PO 12/30/16 18:00 12/31/16 06:02 (Ambien) 5 mg HS PRN PO 12/30/16 18:00 (Mag-Al Plus Susp Liq) 15 ml Q8H PRN PO 12/30/16 18:00 (Zofran Odt) 4 mg Q6H PRN PO 12/30/16 18:00 (Ultram) 50 mg Q6H PRN PO 12/30/16 18:00 Assessment/Plan Problem List: (1) Vaginal delivery Assessment and Plan Patient is a 26-year-old delivered at 38 weeks and 3 days. Patient is day 2 after spontaneous vaginal delivery. * Continue routine care. * Percocet and Motrin PRN pain. * Encouraged OOB. * Advised pelvic rest for 6 wks. * Contraception: will discuss options at her follow-up appointment. * Anticipate discharge today. MD Nilsa Huff Dr.,Alondra VILLATORO R1 Jan 01, 2017 10:17
== END 2017-01-01 14:17 | disposition home or self-care (01) | DRG 775 ==
LOC: HOBED 03:47 → H2EA 05:20 → H1EA 18:26
PROVIDERS: ADMIT Obstetrics & Gynecology; ATTEND Obstetrics & Gynecology
PROC: 10E0XZZ Delivery of Products of Conception, External Approach (ICD-10-PCS; principal; 2016-12-30)
PROC: 0HQ9XZZ Repair Perineum Skin, External Approach (ICD-10-PCS; 2016-12-30)
PROC: 10H07YZ Insertion of Other Device into Products of Conception, Via Natural or Artificial Opening (ICD-10-PCS; 2016-12-30)
DX: O42.02 Full-term premature rupture of membranes, onset of labor within 24 hours of rupture (principal); O69.82X0 Labor and delivery complicated by other cord entanglement, without compression, not applicable or unspecified; Z87.891 Personal history of nicotine dependence; Z37.0 Single live birth; Z3A.38 38 weeks gestation of pregnancy
CPT/HCPCS: 59025; 80307; 81001; 84112; 85025; 86900; 86901; 87086; 90715; G0481; J2590